=== PATIENT | female | born 1975 | race Caucasian/White ===

== ENCOUNTER 2016-12-12 03:43 | Emergency (ER) | payer OTHER ==
[~2016-12-12] VITALS: Ht 162.6 cm; Wt 69.4 kg
[~2016-12-12 03:43] MED LIST: ALBUTEROL SULF8.5 GM INH; AZITHROMYCIN250 MG ORAL; CIPROFLOXACIN500 M2 ORAL; CYCLOBENZAPRINE10 MG ORAL; ERYTHROMYCIN3.5 GM LEFT EYE; IBUPROFEN400 MG ORAL; IBUPROFEN600 MG ORAL; IBUPROFEN800 MG ORAL; KEFLEX500 MG ORAL; NITROFURANTOIN100 M2 ORAL; NKM; NORCO 5-325 TA1 EACH ORAL; PHENAZOPYRIDIN100 MG ORAL; PHENAZOPYRIDIN200 MG ORAL; PROMETHAZINE-C118 M1 ORAL; RANITIDINE HCL150 MG ORAL; TYLENOL EXTRA500 MG ORAL; XANAX0.5 MG ORAL; ZOFRAN ODT4 MG ORAL; ZOFRAN4 MG ORAL
[2016-12-12] MEDS ORDERED: IBUPROFEN600 MG ORAL (04:05)
[2016-12-12] MEDS ORDERED: HYDROCODON-ACE1 EA15 ORAL (04:20)
[2016-12-12] MEDS ORDERED: AMOXICILLIN500 MG ORAL (04:20)
--- NOTE | 2016-12-12 04:21 | Emergency Room Report ---
History of Present Illness General Chief Complaint: Earache Source: Patient Present Illness HPI Is a 41-year-old female with no significant past history. She presents with chief complaint of right ear pain. Onset for 2 days but worse tonight. Throbbing in nature and sharp in nature. 10 out of 10. Radiate to her head and also to her cheek. No fever or chills. No runny nose. Subjective fever. No cough or congestion. Allergies: Coded Allergies: No Known Allergies (Unverified , 05/29/13) Patient History Past Medical History: see triage record, old chart reviewed Past Surgical History: other Pertinent Family History: none Social History: Denies: smoking Now: No - early menopause : 0 Para: 0 Immunizations: other Reviewed Nursing Documentation: PMH: Agreed, PSxH: Agreed Nursing Documentation-PMH Hx Asthma: No Hx Cancer: Yes - ovarian cancer Hx Neurological Problems: No - PREMATURE MENOPAUSE Review of Systems Eye: Denies: blurred vision, eye pain ENT: Reports: ear pain, Denies: nose congestion, throat swelling Respiratory: Denies: cough, shortness of breath Cardiovascular: Denies: chest pain, palpitations Gastrointestinal: Denies: abdominal pain, diarrhea, nausea, vomiting Musculoskeletal: Denies: back pain, joint pain Skin: Denies: rash Neurological: Denies: headache, numbness Endocrine: Denies: increased thirst, increased urine Hematologic/Lymphatic: Denies: easy bruising All Other Systems: negative except mentioned in HPI Physical Exam Vital Signs Date Time Temp Pulse Resp B/P Pulse Ox O2 Delivery O2 Flow Rate FiO2 12/12/16 04:01 98.1 76 20 125/88 100 Room Air vitals normal Sp02 EP Interpretation: reviewed, normal General Appearance: well appearing, no apparent distress, alert Head: normocephalic, atraumatic Eyes: bilateral eye EOMI, bilateral eye PERRL ENT: hearing grossly normal, normal pharynx, other - No dental pain. Right TM is dull with fluid. Loss of light reflex. Neck: full range of motion, supple, no meningismus Respiratory: chest non-tender, lungs clear, normal breath sounds Cardiovascular #1: regular rate, rhythm, no murmur Gastrointestinal: normal bowel sounds, non tender, no mass, no organomegaly, no bruit, non-distended Musculoskeletal: back normal, gait/station normal, normal range of motion Psychiatric: mood/affect normal Skin: warm/dry Medical Decision Making Diagnostic Impression: Primary Impression: Right otitis media with effusion ER Course Patient presents with otitis media with effusion. No evidence of mastoiditis, perforation, meningitis or other serious bacterial infection. No dental abscess. Last Vital Signs Date Time Temp Pulse Resp B/P Pulse Ox O2 Delivery O2 Flow Rate FiO2 12/12/16 04:01 98.1 76 20 125/88 100 Room Air Status: improved Disposition: HOME, SELF-CARE Condition: Stable Scripts Hydrocodone/Acetaminophen 5-325* (HYDROCODONE/ACETAMINOPHEN 5-325*) 1 Each Tablet 1 TAB ORAL Q6H Y for For Pain, #15 TAB 0 Refills Prov: ELY WARREN M.D. 12/12/16 Amoxicillin* (AMOXIL*) 500 Mg Capsule 500 MG ORAL THREE TIMES A DAY, #21 CAP Prov: ELY WARREN M.D. 12/12/16 Patient Instructions: Otitis Media, Adult, [id number] Additional Instructions: Followup with your DrAbel in 7 days. Return if symptom worsen. ELY WARREN M.D. Dec 12, 2016 04:20
[2016-12-12 04:27] VITALS: BP 125/88
[2016-12-12] MEDS ORDERED: Norco 5mg/325mg tab ORAL ONE (04:30)
== END 2016-12-12 04:27 | disposition home or self-care (01) ==
LOC: EMR 04:25
DX: H66.91 Otitis media, unspecified, right ear (principal); Z85.43 Personal history of malignant neoplasm of ovary
CPT/HCPCS: 99284

== ENCOUNTER 2017-02-02 11:07 | Emergency (ER) | payer MEDICAID, OTHER ==
[~2017-02-02] VITALS: Ht 162.6 cm; Wt 70.8 kg
[~2017-02-02 11:07] MED LIST changes: +AMOXICILLIN500 MG ORAL; +HYDROCODON-ACE1 EA15 ORAL
[2017-02-02 11:42] VITALS: BP 104/55
[2017-02-02 12:12] LABS: APPEARANCE,URINE SLIGHTLY CLOUDY; KETONES,URINE NEGATIVE (NEGATIVE); LEUKOCYTE ESTERASE ,URINE 1+ (NEGATIVE); NITRITE,URINE NEGATIVE (NEGATIVE); PH,URINE 8 (4.5-8.0); PROTEIN,URINE NEGATIVE (NEGATIVE); UROBILINOGEN,URINE NORMAL MG/DL (0.0-1.0)
[2017-02-02] MEDS ORDERED: Metoclopramide 10mg/2ml Inj IVP ONE (12:15)
[2017-02-02 12:25] LABS: BACTERIA,URINE FEW /HPF; RBC,URINE 0-2 /HPF (0 - 2); SQUAMOUS EPITHELIAL CELL,UR MODERATE /LPF (NONE/OCC)
--- NOTE | 2017-02-02 12:30 | Emergency Room Report ---
History of Present Illness General Chief Complaint: Headache Source: Patient Present Illness HPI Patient is a 41-year-old female brought in by self after increased headache. Patient reported having gradual onset of headache associated with nausea and vomiting. She reported having pain to her head which did not radiate. She denied any visual changes. Patient reported having some bruising to her lower extremities. Patient denies past medical history Allergies: Coded Allergies: No Known Allergies (Unverified , 05/29/13) Patient History Past Medical History: see triage record Last Menstrual Period: 7 yrs ago Reviewed Nursing Documentation: PMH: Agreed, PSxH: Agreed Nursing Documentation-PMH Past Medical History: No Stated History Hx Asthma: No Hx Neurological Problems: No - PREMATURE MENOPAUSE Review of Systems All Other Systems: negative except mentioned in HPI Physical Exam Vital Signs Date Time Temp Pulse Resp B/P Pulse Ox O2 Delivery O2 Flow Rate FiO2 02/02/17 11:11 97.9 75 14 104/55 100 Room Air Sp02 EP Interpretation: reviewed, normal General Appearance: normal inspection, well appearing, no apparent distress, alert, GCS 15 Head: atraumatic ENT: normal ENT inspection, hearing grossly normal, normal voice Neck: normal inspection, full range of motion, supple, no bony tend Respiratory: normal inspection, lungs clear, normal breath sounds, no respiratory distress, no retraction, no wheezing Cardiovascular #1: regular rate, rhythm, no edema Gastrointestinal: normal inspection, normal bowel sounds, non tender, soft, no guarding, no hernia Genitourinary: no CVA tenderness Musculoskeletal: normal inspection, back normal, normal range of motion Neurologic: normal inspection, alert, oriented x3, responsive, bacteriologist soil III-XII nml as tested, speech normal Psychiatric: normal inspection, judgement/insight normal, mood/affect normal Skin: no rash, other - bruising to left thigh Medical Decision Making Diagnostic Impression: Primary Impression: Headache ER Course She presented for headache. Differential diagnoses included but was not limited to skull fracture, subarachnoid hemorrhage, meningitis, aneurysm, mass lesion, intracranial hemorrhage. Patient's benign exam and does not appear to require any further imaging or laboratory testing at this time. The patient was given medications for headache with improvement. Patient previous imaging. Patient shows no meningeal signs at this time. Patient was advised followup with her primary care physician for recheck in 2 days. She is advised to return if she began having increasing headache persistent vomiting neck stiffness or the concerns. This medical record is generated with [employer] lvn software. There may be some documentation discrepancies related to use of this software Labs Test 02/02/17 11:18 Urine Color Pale yellow Urine Appearance Slightly cloudy Urine pH 8 (4.5-8.0) Urine Specific [place] 1.010 (1.005-1.035) Urine Protein Negative (NEGATIVE) Urine Glucose (UA) Negative (NEGATIVE) Urine Ketones Negative (NEGATIVE) Urine Occult Blood Negative (NEGATIVE) Urine Nitrite Negative (NEGATIVE) Urine Bilirubin Negative (NEGATIVE) Urine Urobilinogen Normal MG/DL (0.0-1.0) Urine Leukocyte Esterase 1+ (NEGATIVE) Urine RBC 0-2 /HPF (0 - 2) Urine WBC 2-4 /HPF (0 - 2) Urine Squamous Epithelial Cells Moderate /LPF (NONE/OCC) Urine Bacteria Few /HPF (NONE) Urine HCG, Qualitative Negative Last Vital Signs Date Time Temp Pulse Resp B/P Pulse Ox O2 Delivery O2 Flow Rate FiO2 02/02/17 11:42 97.9 14 104/55 100 Room Air 02/02/17 11:11 75 Status: improved Disposition: HOME, SELF-CARE Condition: Stable Scripts Prednisone* (PREDNISONE*) 20 Mg Tablet 20 MG ORAL DAILY, #5 TAB Prov: Baron Krishnamurthy 02/02/17 Ibuprofen* (MOTRIN*) 600 Mg Tablet 600 MG ORAL Q8H Y for For Pain, #30 TAB 0 Refills Prov: Baron Krishnamurthy 02/02/17 Cephalexin* (KEFLEX*) 500 Mg Capsule 500 MG ORAL EVERY 6 HOURS, #28 CAP 0 Refills Prov: Baron Krishnamurthy 02/02/17 Referrals: [facility] (PCP) Baron Krishnamurthy Feb 02, 2017 12:30
[2017-02-02] MEDS ORDERED: KEFLEX500 MG ORAL (13:32)
[2017-02-02] MEDS ORDERED: IBUPROFEN600 MG ORAL (13:33)
[2017-02-02] MEDS ORDERED: PREDNISONE20 MG ORAL (13:38)
[2017-02-02 13:46] VITALS: BP 94/59
--- NOTE | 2017-02-03 07:48 | Diagnostic Imaging Report ---
Indications: Headache for 3 days, denies trauma Technique: Continuous helical CT imaging of the brain was performed with automatic exposure control on a Siemens sensation [address] scanner. Axial and coronal images were reconstructed at 5 mm slice thickness and interval. CTDI volume(s): 70 mGy Total DLP: 1336 mGy-cm Findings: Comparison: 05/29/13 Intracranial anatomy name unremarkable. No evidence of mass or hemorrhage, other attenuation abnormality, mass effect, midline shift, hydrocephalus or increased intracranial pressure. Bone window images are unremarkable. Visualized paranasal sinuses and mastoid air cells are clear. IMPRESSION: Negative noncontrast CT scan of the brain , unchanged. This correlates with [employer] preliminary report. The CT scanner at [facility] is accredited by the [employer] and the scans are performed using protocols designed to limit radiation exposure to as low as reasonably achievable to attain images of sufficient resolution adequate for diagnostic evaluation.
== END 2017-02-02 13:48 | disposition home or self-care (01) ==
LOC: EMR 11:20
DX: R51 Headache (principal); R11.2 Nausea with vomiting, unspecified; S70.02XA Contusion of left hip, initial encounter; X58.XXXA Exposure to other specified factors, initial encounter; Y92.9 Unspecified place or not applicable
CPT/HCPCS: 70450; 81003; 81025; 96374; 99284; J2765

== ENCOUNTER 2017-06-01 08:49 | Emergency (ER) | payer MEDICAID, OTHER ==
[~2017-06-01] VITALS: Ht 154.9 cm; Wt 68.0 kg
[~2017-06-01 08:49] MED LIST changes: +PREDNISONE20 MG ORAL
[2017-06-01 09:24] LABS: APPEARANCE,URINE VERY CLOUDY; KETONES,URINE NEGATIVE (NEGATIVE); LEUKOCYTE ESTERASE ,URINE 3+ (NEGATIVE); NITRITE,URINE POSITIVE (NEGATIVE); PH,URINE 5 (4.5-8.0); PROTEIN,URINE 3+ (NEGATIVE); UROBILINOGEN,URINE NORMAL MG/DL (0.0-1.0)
[2017-06-01 09:29] VITALS: BP 100/64
[2017-06-01] MEDS ORDERED: KEFLEX500 MG ORAL (09:42)
[2017-06-01] MEDS ORDERED: PHENAZOPYRIDIN100 MG ORAL (09:42)
--- NOTE | 2017-06-01 09:50 | Emergency Room Report ---
History of Present Illness General Chief Complaint: Female Urogenital Problems Source: Patient Present Illness HPI 41-year-old female presents ED complaining of burning urination x2 days. 8/10, burning, worse with urination. Denies any vaginal bleeding or discharge. Denies flank pain. Denies fevers or chills. Denies nausea or vomiting. No other aggravating relieving factors. Denies any other associated symptoms Allergies: Coded Allergies: No Known Allergies (Unverified , 05/29/13) Patient History Past Medical History: none Past Surgical History: none Pertinent Family History: none Social History: Denies: smoking, alcohol use, drug use Last Menstrual Period: 7 years ago Now: No Immunizations: UTD Reviewed Nursing Documentation: PMH: Agreed, PSxH: Agreed Nursing Documentation-PMH Past Medical History: No Stated History Hx Asthma: No Hx Neurological Problems: No - PREMATURE MENOPAUSE Review of Systems All Other Systems: negative except mentioned in HPI Physical Exam Vital Signs Date Time Temp Pulse Resp B/P (MAP) Pulse Ox O2 Delivery O2 Flow Rate FiO2 06/01/17 08:52 97.5 75 18 106/67 98 Room Air Sp02 EP Interpretation: reviewed, normal General Appearance: no apparent distress, alert, GCS 15, non-toxic Head: normocephalic Eyes: bilateral eye normal inspection, bilateral eye PERRL ENT: hearing grossly normal, normal pharynx, no angioedema, normal voice, TMs + canals normal Neck: normal inspection Respiratory: normal inspection Cardiovascular #1: normal inspection Gastrointestinal: normal inspection Genitourinary: no CVA tenderness Musculoskeletal: normal inspection Neurologic: alert, oriented x3, responsive, motor strength/tone normal, sensory intact, speech normal Psychiatric: normal inspection Skin: normal inspection Lymphatic: normal inspection Medical Decision Making Diagnostic Impression: Primary Impression: UTI (urinary tract infection) Qualified Codes: N39.0 - Urinary tract infection, site not specified ER Course Hospital Course 41-year-old female presents to ED complaining of dysuria x2 days. Differential diagnoses include: UTI, cystitis, pyelonephritis Clinical course Patient placed on stretcher. After initial history and physical I ordered UA, urine . UA + bacteria Diagnosis - UTI Stable and discharged home with prescriptions for Rx Keflex, Pyridium. Instructed to followup with PMD. Return to ED if symptoms recur or worsen Labs Test 06/01/17 09:00 Urine Color Yellow Urine Appearance Very cloudy Urine pH 5 (4.5-8.0) Urine Specific [place] 1.020 (1.005-1.035) Urine Protein 3+ (NEGATIVE) Urine Glucose (UA) Negative (NEGATIVE) Urine Ketones Negative (NEGATIVE) Urine Occult Blood 5+ (NEGATIVE) Urine Nitrite Positive (NEGATIVE) Urine Bilirubin Negative (NEGATIVE) Urine Urobilinogen Normal MG/DL (0.0-1.0) Urine Leukocyte Esterase 3+ (NEGATIVE) Urine HCG, Qualitative Negative Last Vital Signs Date Time Temp Pulse Resp B/P (MAP) Pulse Ox O2 Delivery O2 Flow Rate FiO2 06/01/17 09:29 98.1 75 14 100/64 99 Room Air Status: improved Disposition: HOME, SELF-CARE Condition: Stable Scripts Phenazopyridine Hcl* (PYRIDIUM*) 100 Mg Tablet 100 MG ORAL THREE TIMES A DAY for 3 Days, TAB Prov: BURTON LOWERY M.D. 06/01/17 Cephalexin* (KEFLEX*) 500 Mg Capsule 500 MG ORAL Q6H, #28 CAP 0 Refills Prov: BURTON LOWERY M.D. 06/01/17 Referrals: [facility] (PCP) Patient Instructions: Urinary Tract Infection BURTON LOWERY M.D. Jun 01, 2017 09:50
[2017-06-01 09:51] VITALS: BP 100/64
[2017-06-01 10:08] LABS: BACTERIA,URINE MANY /HPF; RBC,URINE TNTC /HPF (0 - 2); SQUAMOUS EPITHELIAL CELL,UR FEW /LPF (NONE/OCC); WBC,URINE TNTC /HPF (0 - 2)
== END 2017-06-01 09:52 | disposition home or self-care (01) ==
LOC: EMR 09:05
DX: N39.0 Urinary tract infection, site not specified (principal)
CPT/HCPCS: 81003; 81025; 87086; 87181; 99283

== ENCOUNTER 2017-06-27 13:49 | Emergency (ER) | payer MEDICAID ==
[~2017-06-27] VITALS: Ht 154.9 cm; Wt 70.3 kg
[2017-06-27 14:23] LABS: APPEARANCE,URINE SLIGHTLY CLOUDY; BILIRUBIN, URINE NEGATIVE (NEGATIVE); COLOR,URINE PALE YELLOW; GLUCOSE, URINE (UA) NEGATIVE (NEGATIVE); KETONES,URINE 3+ (NEGATIVE); LEUKOCYTE ESTERASE ,URINE 3+ (NEGATIVE); NITRITE,URINE POSITIVE (NEGATIVE); PH,URINE 6 (4.5-8.0); PROTEIN,URINE 1+ (NEGATIVE); UROBILINOGEN,URINE NORMAL MG/DL (0.0-1.0)
[2017-06-27 15:41] LABS: BASOPHILS % (AUTO) 0.5 % (0.0-2.0); EOSINOPHILS % (AUTO) 0.5 % (0.0-3.0); HEMATOCRIT 36.6 % (37.0-47.0); HEMOGLOBIN 12.4 G/DL (12.0-16.0); LYMPHOCYTES % (AUTO) 13.6 % (20.0-45.0); MEAN CORPUSCULAR VOLUME 88 FL (80-99); MONOCYTES % (AUTO) 9.5 % (1.0-10.0); NEUTROPHILS % (AUTO) 75.8 % (45.0-75.0); PLATELET COUNT 236 K/UL (150-450); RED BLOOD COUNT 4.16 M/UL (4.20-5.40); RED CELL DISTRIBUTION WIDTH 11.8 % (11.6-14.8); WHITE BLOOD COUNT 9.9 K/UL (4.8-10.8)
[2017-06-27 15:47] LABS: ANION GAP 10 mmol/L (5-15); BLOOD UREA NITROGEN 8 mg/dL (7-18); CALCIUM 9.1 MG/DL (8.5-10.1); CARBON DIOXIDE 26 MMOL/L (21-32); CHLORIDE 102 MMOL/L (98-107); CREATININE 0.9 MG/DL (0.55-1.30); POTASSIUM 4.3 MMOL/L (3.5-5.1); SODIUM 138 MMOL/L (136-145)
[2017-06-27 15:51] LABS: ALANINE AMINOTRANSFERASE 22 U/L (12-78); ALBUMIN 3.2 G/DL (3.4-5.0); ALBUMIN/GLOBULIN RATIO 0.7 (1.0-2.7); ALKALINE PHOSPHATASE 96 U/L (46-116); ASPARTATE AMINO TRANSFERASE 14 U/L (15-37); BILIRUBIN,TOTAL 0.2 MG/DL (0.2-1.0)
[2017-06-27] MEDS ORDERED: NITROFURANTOIN100 M2 ORAL (16:01)
[2017-06-27] MEDS ORDERED: ACETAMINOPHEN-1 EAC1 ORAL (16:01)
[2017-06-27 16:09] VITALS: BP 110/73
--- NOTE | 2017-06-27 19:22 | Emergency Room Report ---
History of Present Illness General Chief Complaint: Female Urogenital Problems Source: Patient Present Illness [facility] The patient is a 41-year-old female presenting for dysuria, increased urinary frequency, abdominal pain, and right-sided back pain. This has been ongoing for 2 days. The patient states that she obtains frequent UTIs and was seen in this emergency department approximately 3 weeks prior for the same complaint. She was given prescription for Keflex and states that this initially helped but symptoms returned after completing the course. Pain is a 9/10 constant ache. Does not radiate. She denies other symptoms including nausea, vomiting, fever, chills, hematuria, vaginal discharge Allergies: Coded Allergies: No Known Allergies (Unverified , 05/29/13) Patient History Past Medical History: see triage record Pertinent Family History: none Last Menstrual Period: 7 years ago Reviewed Nursing Documentation: PMH: Agreed, PSxH: Agreed Nursing Documentation-PMH Past Medical History: No Stated History Hx Asthma: No Hx Neurological Problems: No - PREMATURE MENOPAUSE Review of Systems All Other Systems: negative except mentioned in HPI Physical Exam Vital Signs Date Time Temp Pulse Resp B/P (MAP) Pulse Ox O2 Delivery O2 Flow Rate FiO2 06/27/17 13:53 98.8 89 14 99/65 95 Room Air Sp02 EP Interpretation: reviewed, normal General Appearance: no apparent distress, alert, GCS 15, non-toxic Head: normocephalic, atraumatic Eyes: bilateral eye normal inspection, bilateral eye PERRL ENT: hearing grossly normal, normal pharynx, no angioedema, normal voice Gastrointestinal: normal bowel sounds, no mass, non-distended, tenderness - suprapubic Rectal: deferred Genitourinary: CVA tenderness (R) Musculoskeletal: back normal, gait/station normal, normal range of motion, non- tender Neurologic: alert, oriented x3, responsive, motor strength/tone normal, sensory intact, speech normal Psychiatric: judgement/insight normal, memory normal, mood/affect normal, no suicidal/homicidal ideation Skin: normal color, no rash, warm/dry, well hydrated Medical Decision Making PA Attestation Dr. Wellington is my supervising physician. Patient management was discussed with my supervising physician Diagnostic Impression: Primary Impression: Recurrent UTI ER Course The patient is a 41-year-old female presenting for dysuria, increased urinary frequency, abdominal pain, and right-sided back pain. Differential diagnosis considered but not limited to: UTI, BV, yeast infection, pyelonephritis, PID, PE: Vitals WNL. NAD. Abdomen: Normal appearance. Non distended. No ecchymosis. Normal BS. TTP over suprapubic region only. No McBurney point tenderness. No guarding. R CVA tenderness No leukocytosis. BUN/Cr WNLA UA shows UTI The patient discharged home with a prescription for longer course of Macrobid and is given ER precautions. She was told she needs to followup with urology for further testing and evaluation. She agrees Laboratory Tests Test 06/27/17 13:59 06/27/17 15:00 Urine Color Pale yellow Urine Appearance Slightly cloudy Urine pH 6 (4.5-8.0) Urine Specific [place] 1.010 (1.005-1.035) Urine Protein 1+ (NEGATIVE) H Urine Glucose (UA) Negative (NEGATIVE) Urine Ketones 3+ (NEGATIVE) H Urine Occult Blood 4+ (NEGATIVE) H Urine Nitrite Positive (NEGATIVE) H Urine Bilirubin Negative (NEGATIVE) Urine Urobilinogen Normal MG/DL (0.0-1.0) Urine Leukocyte Esterase 3+ (NEGATIVE) H Urine RBC 2-4 /HPF (0 - 2) H Urine WBC 15-20 /HPF (0 - 2) H Urine Squamous Epithelial Cells Few /LPF (NONE/OCC) Urine Bacteria Moderate /HPF (NONE) H Urine HCG, Qualitative Negative White Blood Count 9.9 K/UL (4.8-10.8) Red Blood Count 4.16 M/UL (4.20-5.40) L Hemoglobin 12.4 G/DL (12.0-16.0) Hematocrit 36.6 % (37.0-47.0) L Mean Corpuscular Volume 88 FL (80-99) Mean Corpuscular Hemoglobin 29.9 PG (27.0-31.0) Mean Corpuscular Hemoglobin Concent 33.9 G/DL (32.0-36.0) Red Cell Distribution Width 11.8 % (11.6-14.8) Platelet Count 236 K/UL (150-450) Mean Platelet Volume 7.5 FL (6.5-10.1) Neutrophils (%) (Auto) 75.8 % (45.0-75.0) H Lymphocytes (%) (Auto) 13.6 % (20.0-45.0) L Monocytes (%) (Auto) 9.5 % (1.0-10.0) Eosinophils (%) (Auto) 0.5 % (0.0-3.0) Basophils (%) (Auto) 0.5 % (0.0-2.0) Prothrombin Time 10.9 SEC (9.30-11.50) Prothrombin Time INR 1.0 (0.9-1.1) PTT 30 SEC (23-33) Sodium Level 138 MMOL/L (136-145) Potassium Level 4.3 MMOL/L (3.5-5.1) Chloride Level 102 MMOL/L (98-107) Carbon Dioxide Level 26 MMOL/L (21-32) Anion Gap 10 mmol/L (5-15) Blood Urea Nitrogen 8 mg/dL (7-18) Creatinine 0.9 MG/DL (0.55-1.30) Estimate Glomerular Filtration Rate > 60 mL/min (>60) Glucose Level 101 MG/DL (74-106) Calcium Level 9.1 MG/DL (8.5-10.1) Total Bilirubin 0.2 MG/DL (0.2-1.0) Aspartate Amino Transferase (AST) 14 U/L (15-37) L Alanine Aminotransferase (ALT) 22 U/L (12-78) Alkaline Phosphatase 96 U/L (46-116) Total Protein 7.7 G/DL (6.4-8.2) Albumin 3.2 G/DL (3.4-5.0) L Globulin 4.5 g/dL Albumin/Globulin Ratio 0.7 (1.0-2.7) L Lipase 114 U/L (73-393) Lab Results Impression No leukocytosis. BUN/Cr WNLA UA shows UTI Last Vital Signs Date Time Temp Pulse Resp B/P (MAP) Pulse Ox O2 Delivery O2 Flow Rate FiO2 06/27/17 16:09 98.4 68 17 110/73 98 Room Air Status: improved Disposition: HOME, SELF-CARE Condition: Improved Scripts Acetaminophen With Codeine (T#3) (TYLENOL #3 TAB*) Y Tab 1 TAB ORAL Q6HR Y for For Pain, #10 TAB Prov: ARLEEN HER P.AAbel 06/27/17 Nitrofurantoin Monohyd/M-Cryst* (MACROBID 100 MG*) 100 Mg Capsule 100 MG ORAL EVERY 12 HOURS, #20 CAP Prov: ARLEEN HER 06/27/17 Patient Instructions: Urinary Tract Infection Additional Instructions: I discussed my findings with the patient. All questions and concerns have been answered. Treatment and medication compliance have been addressed. I advised the patient that they need to follow up with PMD in 3-5 days. Return to ED if symptoms worsen, new symptoms arise, or if needed for any reason. Patient verbalized understanding of discharge instructions. Please follow up with urology ARLEEN HER Jun 27, 2017 19:21
== END 2017-06-27 16:09 | disposition home or self-care (01) ==
LOC: EMR 14:10
DX: N39.0 Urinary tract infection, site not specified (principal)
CPT/HCPCS: 36415; 80053; 81003; 81025; 83690; 85025; 85610; 85730; 87086; 87181; 96361; 96374; 99284; J2405

== ENCOUNTER 2017-11-03 12:31 | Emergency (ER) | payer MEDICAID ==
[~2017-11-03] VITALS: Ht 160 cm; Wt 59.0 kg
[~2017-11-03 12:31] MED LIST changes: +ACETAMINOPHEN-1 EAC1 ORAL
[2017-11-03] MEDS ORDERED: NKM (12:40)
[2017-11-03] MEDS ORDERED: Acetaminophen 500mg (ES) tab ORAL ONE (12:45)
[2017-11-03 12:58] LABS: APPEARANCE,URINE CLEAR; BILIRUBIN, URINE NEGATIVE (NEGATIVE); COLOR,URINE PALE YELLOW; GLUCOSE, URINE (UA) NEGATIVE (NEGATIVE); KETONES,URINE NEGATIVE (NEGATIVE); LEUKOCYTE ESTERASE ,URINE 2+ (NEGATIVE); NITRITE,URINE NEGATIVE (NEGATIVE); PH,URINE 6 (4.5-8.0); PROTEIN,URINE NEGATIVE (NEGATIVE); UROBILINOGEN,URINE NORMAL MG/DL (0.0-1.0)
--- NOTE | 2017-11-03 12:59 | Emergency Room Report ---
History of Present Illness General Chief Complaint: Female Urogenital Problems Source: Patient Present Illness HPI 42-year-old female patient presents ER complaining of pain and burning with urination for the past few days. patient reports she saw a little bit of blood in the urine today. Denies vaginal discharge or vaginal rash. Denies foul- smelling odor. Patient reports history of recurrent UTIs, patient is been seen in this ER multiple times for UTI symptoms. Patient reports that she has not followed up with urologist due to recurrent UTIs. Patient also complains of subjective fever and nausea during this time. Patient reports no history of UTI. Patient reports she has not had a menstrual period for several years secondary to early-onset menopause. Patient reports recent sexual activity one month ago, states she uses protection. Patient denies back/flank pain. Patient reports she took Aleve at 9 this morning her pain symptoms. denies chest pain, shortness of breath, diarrhea. denies dizziness or fainting. Allergies: Coded Allergies: No Known Allergies (Unverified , 05/29/13) Patient History Past Medical History: see triage record Last Menstrual Period: menopause Reviewed Nursing Documentation: PMH: Agreed; PSxH: Agreed Nursing Documentation-PMH Past Medical History: No Stated History Hx Asthma: No Hx Neurological Problems: No - PREMATURE MENOPAUSE Review of Systems All Other Systems: negative except mentioned in HPI Physical Exam Vital Signs Date Time Temp Pulse Resp B/P (MAP) Pulse Ox O2 Delivery O2 Flow Rate FiO2 11/03/17 12:36 98.8 102 18 107/71 97 Room Air 98.8 Sp02 EP Interpretation: reviewed, normal General Appearance: well appearing, no apparent distress, alert, GCS 15, non- toxic Head: normocephalic, atraumatic Eyes: bilateral eye normal inspection, bilateral eye PERRL ENT: hearing grossly normal, normal pharynx, no angioedema, normal voice, uvula midline, moist mucus membranes Neck: full range of motion Respiratory: lungs clear, normal breath sounds, no rhonchi, no respiratory distress, no accessory muscle use, no wheezing, speaking full sentences Cardiovascular #1: regular rate, rhythm, no edema Gastrointestinal: non tender, soft, no mass, non-distended, no guarding, no rebound Genitourinary: no CVA tenderness Musculoskeletal: back normal, digits/nails normal, gait/station normal, normal range of motion, non-tender Neurologic: alert, oriented x3, responsive, motor strength/tone normal, sensory intact Psychiatric: mood/affect normal Skin: no rash Medical Decision Making PA Attestation Dr. Cui is my supervising Physician whom patient management has been discussed with. Diagnostic Impression: Primary Impression: UTI (urinary tract infection) ER Course Pt presents to ED c/o urinary symptoms. DDX considered but are not limited to cystitis, pyelonephritis, STI, vaginitis. VITAL SIGNS are WNL, patient is afebrile. Ordered UA. ER COURSE PE benign, no TTP of abdomen, no CVA tenderness bilaterally. UA results show leukocyte esterase 2+, elevated WBCs, few epithelial cells, indicate likely UTI, will treat with abx. Microscopic hematuria may be related to UTI, may be related to hx of recurrent UTIs, patient needs to followup with PCP for referral to for further workup. Need f/u with OBGYN. If concern for STI, followup with STI clinic for testing and treatment. Denies STI concern. follow-up with urology due to recurrent UTIs. Practice good hygiene habits. Drink plenty of fluids. Return to ER for new or worsening of symptoms. Patient is resting comfortably in chair, nontoxic appearing, in no acute distress. Patient states they feel better and is ready to go home. DISCHARGE -Rx provided for Tylenol -Rx provided for Keflex Patient is stable for discharge. Patient resting comfortably, in no acute distress, nontoxic appearing, talking without difficulty. Will provide with patient care instructions and any necessary prescriptions. Patient understands and agrees to treatment plan. Patient encouraged to drink plenty of fluids. Patient to take medication as instructed. Care plan and follow-up instructions provided. Patient questions asked and answered. Reports understanding and agreement to treatment plan. Patient instructed to follow-up with primary care provider in 3 - 5 days. ER precautions given. Patient instructed to return to ER immediately for any new or worsening of symptoms. Including but not limited to fever, abdominal pain , intractable vomiting. - Please note that this Emergency Department Report was dictated using [facility] [employer] technology software, occasionally this can lead to erroneous entry secondary to interpretation by the dictation equipment. Labs Test 11/03/17 12:40 Urine Color Pale yellow Urine Appearance Clear Urine pH 6 (4.5-8.0) Urine Specific Nelson 1.015 (1.005-1.035) Urine Protein Negative (NEGATIVE) Urine Glucose (UA) Negative (NEGATIVE) Urine Ketones Negative (NEGATIVE) Urine Occult Blood 4+ (NEGATIVE) Urine Nitrite Negative (NEGATIVE) Urine Bilirubin Negative (NEGATIVE) Urine Urobilinogen Normal MG/DL (0.0-1.0) Urine Leukocyte Esterase 2+ (NEGATIVE) Urine RBC 5-10 /HPF (0 - 2) Urine WBC 15-20 /HPF (0 - 2) Urine Squamous Epithelial Cells Few /LPF (NONE/OCC) Urine Bacteria Few /HPF (NONE) Last Vital Signs Date Time Temp Pulse Resp B/P (MAP) Pulse Ox O2 Delivery O2 Flow Rate FiO2 11/03/17 12:36 98.8 102 18 107/71 97 Room Air 98.8 Disposition: HOME, SELF-CARE Condition: Stable Scripts Acetaminophen* (TYLENOL EXTRA STRENGTH*) 500 Mg Tablet 500 MG ORAL Q8H PRN for Prn Headache/Temp > 101, #30 TAB 0 Refills Prov: Andre Valentin 11/03/17 Cephalexin* (KEFLEX*) 500 Mg Capsule 500 MG ORAL EVERY 12 HOURS, #14 CAP 0 Refills Prov: Andre Valentin 11/03/17 Patient Instructions: Urinary Tract Infection Additional Instructions: Followup with primary care provider for further diagnosis and treatment. Request referral to urology and provider relations specialist as needed. Contact insurance to request primary care provider. If concern for STI, follow up with STI clinic. Drink plenty of fluids. Take medications as directed. Patient questions asked and answered. ER precautions given, patient instructed to return to ER immediately for any new or worsening of symptoms. Andre Valentin November 03, 2017 12:59
[2017-11-03] MEDS ORDERED: TYLENOL EXTRA500 MG ORAL (13:25)
[2017-11-03] MEDS ORDERED: CEPHALEXIN500 MG ORAL (13:25)
[2017-11-03 13:45] VITALS: BP 111/75
== END 2017-11-03 13:52 | disposition home or self-care (01) ==
LOC: EMR 13:18
DX: N39.0 Urinary tract infection, site not specified (principal)
CPT/HCPCS: 81003; 87086; 87181; 99284

== ENCOUNTER 2017-11-29 12:02 | Emergency (ER) | payer MEDICAID ==
[~2017-11-29] VITALS: Ht 162.6 cm; Wt 69.9 kg
[~2017-11-29 12:02] MED LIST changes: +CEPHALEXIN500 MG ORAL
[2017-11-29 12:37] VITALS: BP 107/78
--- NOTE | 2017-11-29 12:40 | Emergency Room Report ---
History of Present Illness General Chief Complaint: Upper Respiratory Illness Source: Patient Present Illness HPI 42-year-old female presents emergency department complaining of persistent cough , nasal congestion, progression of posterior-lateral rib cage pain that is 10 out of 10 in severity upon coughing x 3 days. Patient denies anterior chest pain. Denies sputum production. Reports fevers denies chills patient states she took Motrin prior to arrival. Denies history of asthma, COPD or smoking. She reports history of bronchitis. Denies CP, Palpitations, LOC, AMS, dizziness , Changes in Vision, Sensation, paresthesias, or a sudden severe headach Allergies: Coded Allergies: No Known Allergies (Unverified , 05/29/13) Patient History Past Medical History: see triage record Past Surgical History: none Pertinent Family History: none Now: No Reviewed Nursing Documentation: PMH: Agreed; PSxH: Agreed Nursing Documentation-PMH Past Medical History: No Stated History Hx Asthma: No Hx Neurological Problems: No - PREMATURE MENOPAUSE Review of Systems All Other Systems: negative except mentioned in HPI Physical Exam Vital Signs Date Time Temp Pulse Resp B/P (MAP) Pulse Ox O2 Delivery O2 Flow Rate FiO2 11/29/17 12:24 98.3 88 20 107/78 97 Room Air 98.2 Sp02 EP Interpretation: reviewed, normal General Appearance: no apparent distress, alert, GCS 15, non-toxic Head: normocephalic, atraumatic Eyes: bilateral eye normal inspection, bilateral eye PERRL ENT: hearing grossly normal, normal voice Neck: full range of motion Respiratory: chest non-tender, lungs clear, normal breath sounds, no wheezing, speaking full sentences Cardiovascular #1: regular rate, rhythm Musculoskeletal: back normal, gait/station normal, normal range of motion Neurologic: alert, oriented x3, responsive, motor strength/tone normal, sensory intact, normal gait, speech normal, grossly normal Psychiatric: judgement/insight normal Skin: normal color, no rash, warm/dry, well hydrated Lymphatic: no adenopathy Medical Decision Making PA Attestation Dr. Osorio is my supervising Physician whom patient management has been discussed with. Diagnostic Impression: Primary Impression: Bronchitis ER Course 42-year-old female presents emergency department complaining of persistent cough , nasal congestion, progression of posterior-lateral rib cage pain that is 10 out of 10 in severity upon coughing x 3 days. Patient denies anterior chest pain. Denies sputum production. Reports fevers denies chills patient states she took Motrin prior to arrival. Denies history of asthma, COPD or smoking. She reports history of bronchitis. Denies CP, Palpitations, LOC, AMS, dizziness , Changes in Vision, Sensation, paresthesias, or a sudden severe headache. Ddx considered but are not limited to URI, pneumonia, PE, strep pharyngitis, meningitis. Vital signs: Pt.is afebrile VS are WNL H&PE are most consistent with bronchitis ORDERS: none required at this time, the diagnosis is clinical ED INTERVENTIONS: None required at this time. DISCHARGE: At this time pt. is stable for d/c to home. Will provide printed patient care instructions, and any necessary prescriptions. Care plan and follow up instructions have been discussed with the patient prior to discharge. Last Vital Signs Date Time Temp Pulse Resp B/P (MAP) Pulse Ox O2 Delivery O2 Flow Rate FiO2 11/29/17 12:24 98.3 88 20 107/78 97 Room Air 98.2 Disposition: HOME, SELF-CARE Condition: Stable Scripts Albuterol Sulfate* (ALBUTEROL SULFATE MDI*) 8.5 Gm Hfa.aer.ad 2 PUFF INH Q6H, #1 INH 0 Refills Prov: Juany Faria 11/29/17 Ibuprofen* (MOTRIN*) 600 Mg Tablet 600 MG ORAL THREE TIMES A DAY, #20 TAB 0 Refills Prov: Juany Faria 11/29/17 Loratadine/Pseudoephedrine (CLARITIN-D 12 HOUR TABLET) 1 Each Tab.er.12h 1 TAB ORAL EVERY 12 HOURS for 7 Days, #14 TAB Prov: Juany Faria 11/29/17 Codeine/Promethazine Hcl* (PROMETHAZINE-CODEINE SYRUP*) 118 Ml Syrup 5 ML ORAL Q6H PRN for For Cough, #120 ML 0 Refills Prov: Juany Faria 11/29/17 Referrals: [facility] (PCP) Patient Instructions: Acute Bronchitis, [id number] Additional Instructions: Take medications as directed. Follow up with a Primary Care Provider in 3-5 days, even if your symptoms have resolved. --Please review list of primary care clinics, if you do not already have a primary care provider Return sooner to ED if new symptoms occur, or current symptoms become worse. Do not drink alcohol, drive, or operate heavy machinery while taking Bronchitis as this may cause drowsiness. - Please note that this Emergency Department Report was dictated using [employer] fry[employer] technology software, occasionally this can lead to erroneous entry secondary to interpretation by the dictation equipment. Juany Faria Nov 29, 2017 12:40
[2017-11-29] MEDS ORDERED: ALBUTEROL SULF8.5 GM INH (12:46)
[2017-11-29] MEDS ORDERED: CLARITIN-D 121 EAC1 ORAL (12:46)
[2017-11-29] MEDS ORDERED: PROMETHAZINE-C118 M1 ORAL (12:46)
[2017-11-29] MEDS ORDERED: IBUPROFEN600 MG ORAL (12:46)
[2017-11-29 12:54] VITALS: BP 107/78
== END 2017-11-29 12:55 | disposition home or self-care (01) ==
LOC: EMR 12:35
DX: J40 Bronchitis, not specified as acute or chronic (principal)
CPT/HCPCS: 99284

== ENCOUNTER 2018-04-23 11:12 | Emergency (ER) | payer MEDICAID, OTHER ==
[~2018-04-23] VITALS: Ht 162.6 cm; Wt 67.6 kg
[~2018-04-23 11:12] MED LIST changes: +CLARITIN-D 121 EAC1 ORAL
[2018-04-23 11:45] VITALS: BP 112/70
[2018-04-23] MEDS ORDERED: ROBITUSSIN NIG237 ML PO (11:48)
[2018-04-23] MEDS ORDERED: ZITHROMAX250 MG ORAL (11:48)
[2018-04-23 11:53] VITALS: BP 112/70
--- NOTE | 2018-04-24 07:03 | Emergency Room Report ---
History of Present Illness General Chief Complaint: Flu Like Symptoms Source: Patient Present Illness HPI Patient present with complaints of cough and congestion reports increased phlegm production Denies any chest pain Denies any vomiting or diarrhea Patient reports low-grade fevers at home Denies any recent travel Denies any neck pain or photophobia As his symptoms persisted patient was concerning came to the ER Allergies: Coded Allergies: No Known Allergies (Unverified , 05/29/13) Patient History Past Medical History: see triage record Pertinent Family History: none Last Menstrual Period: MENOPAUSE Reviewed Nursing Documentation: PMH: Agreed; PSxH: Agreed Nursing Documentation-PMH Past Medical History: No Stated History Hx Asthma: No Hx Neurological Problems: No - PREMATURE MENOPAUSE Review of Systems All Other Systems: negative except mentioned in HPI Physical Exam Vital Signs Date Time Temp Pulse Resp B/P (MAP) Pulse Ox O2 Delivery O2 Flow Rate FiO2 04/23/18 11:36 98.2 78 14 112/70 99 Room Air Sp02 EP Interpretation: reviewed, normal General Appearance: well appearing, no apparent distress Head: normocephalic, atraumatic Eyes: bilateral eye PERRL, bilateral eye EOMI ENT: hearing grossly normal, normal pharynx, TMs + canals normal, uvula midline Neck: full range of motion, supple, no meningismus, no bony tend Respiratory: no respiratory distress, no retraction, no accessory muscle use, crackles - Right lower lobe Cardiovascular #1: normal peripheral pulses, regular rate, rhythm, no edema, no gallop, no JVD, no murmur Gastrointestinal: normal bowel sounds, non tender, soft, no mass, no organomegaly, non-distended, no guarding, no hernia, no pulsatile mass, no rebound Genitourinary: no CVA tenderness Musculoskeletal: normal inspection Neurologic: oriented x3, responsive, 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, motor strength/ tone normal, sensory intact Psychiatric: mood/affect normal Skin: normal color, no rash, warm/dry, palpation normal Lymphatic: normal inspection, no adenopathy Medical Decision Making Diagnostic Impression: Primary Impression: community acquired pna ER Course Patient has clinical signs and history of community acquired pneumonia Given the green phlegm production and the duration Patient is treated appropriately and stable for initial conservative outpatient trial Last Vital Signs Date Time Temp Pulse Resp B/P (MAP) Pulse Ox O2 Delivery O2 Flow Rate FiO2 04/23/18 11:53 98.2 73 14 112/70 99 Room Air Status: improved Disposition: HOME, SELF-CARE Condition: Stable Scripts Dextromethorphan Hb/Doxylamine (ROBITUSSIN NIGHTTIME COUGH DM) 237 Ml Liquid 10 ML PO QHS for 7 Days, ML Prov: Naveen Bernard DO 04/23/18 Azithromycin* (ZITHROMAX*) 250 Mg Tablet 250 MG ORAL DAILY, #6 TAB 0 Refills Take two tables once daily for 1 day, then one tablet once daily for 4 days. Prov: Naveen Bernard DO 04/23/18 Referrals: [facility] (PCP) Patient Instructions: Community-Acquired Pneumonia, Adult, [id number] Additional Instructions: Patient is provided with the discharge instructions notified to follow up with primary doctor in the next 2-3 days otherwise return to the er with any worsening symptoms. Please note that this report is being documented using [employer] technology. This can lead to erroneous entry secondary to incorrect interpretation by the dictating instrument. Naveen Bernard DO Apr 24, 2018 07:03
== END 2018-04-23 11:54 | disposition home or self-care (01) ==
LOC: EMR 11:45
DX: J18.9 Pneumonia, unspecified organism (principal)
CPT/HCPCS: 99283

== ENCOUNTER 2018-11-02 10:26 | Emergency (ER) | payer OTHER ==
[~2018-11-02] VITALS: Ht 152.4 cm; Wt 67.1 kg
[~2018-11-02 10:26] MED LIST changes: +ROBITUSSIN NIG237 ML PO; +ZITHROMAX250 MG ORAL
[2018-11-02 10:34] VITALS: BP 110/64
--- NOTE | 2018-11-02 10:37 | NUR ---
ED Nurse Note:pt. came with left knee pain for 3 week no injury reported, VSS, pt. ambulatory with steady gait
--- NOTE | 2018-11-02 10:41 | Emergency Room Report ---
History of Present Illness General Chief Complaint: Pain Source: Patient Present Illness HPI Patient presents with reports of pain to the left knee Ongoing for the past several weeks patient reports that walking or putting weight on that side makes the pain worse denies any obvious trauma Denies any ankle pain denies any pelvic pain Denies any swelling or erythema Denies any fevers chills Allergies: Coded Allergies: No Known Allergies (Unverified , 05/29/13) Patient History Past Medical History: see triage record Pertinent Family History: none Now: No Reviewed Nursing Documentation: PMH: Agreed; PSxH: Agreed Nursing Documentation-PMH Hx Asthma: No Hx Neurological Problems: No - PREMATURE MENOPAUSE Review of Systems All Other Systems: negative except mentioned in HPI Physical Exam Vital Signs Date Time Temp Pulse Resp B/P (MAP) Pulse Ox O2 Delivery O2 Flow Rate FiO2 11/02/18 10:28 98.1 75 20 110/64 (79) 100 Room Air Sp02 EP Interpretation: reviewed, normal General Appearance: well appearing, no apparent distress Head: normocephalic, atraumatic Eyes: bilateral eye PERRL, bilateral eye EOMI ENT: hearing grossly normal, normal pharynx Neck: supple Respiratory: lungs clear, no retraction Musculoskeletal: normal inspection - No obvious clinical effusion, patella is appropriately mobile, negative anterior and posterior draw test Neurologic: alert, oriented x3 Psychiatric: mood/affect normal Skin: normal inspection, normal color Lymphatic: no adenopathy Medical Decision Making Diagnostic Impression: Primary Impression: Knee pain ER Course Given the patient's history and presentation multiple differentials considered, including but not limited to septic joint, occult fracture, ligamental/disc pathology Given the patient's initial presentation x-ray imaging is obtained No obvious acute pathology is seen Patient does not appear septic or toxic the joint does not appear inflamed Patient will likely benefit from outpatient MRI for further evaluation And at this time is provided referral for close follow-up Other X-Ray Diagnostic Results Other X-Ray Diagnostic Results : X-Ray ordered: Left knee # of Views/Limited Vs Complete: 3 View Indication: Pain EP Interpretation: Yes Interpretation: no dislocation, no soft tissue swelling, no fractures Impression: No acute disease Electronically Signed by: Naveen Bernard DO Last Vital Signs Date Time Temp Pulse Resp B/P (MAP) Pulse Ox O2 Delivery O2 Flow Rate FiO2 11/02/18 10:34 98.1 75 20 110/64 100 Room Air Status: unchanged Disposition: HOME, SELF-CARE Condition: Stable Additional Instructions: Patient is provided with the discharge instructions notified to follow up with primary doctor in the next 2-3 days otherwise return to the er with any worsening symptoms. Please note that this report is being documented using [employer] technology. This can lead to erroneous entry secondary to incorrect interpretation by the dictating instrument. Naveen Bernard DO November 02, 2018 10:41
[2018-11-02 11:53] VITALS: BP 110/64
--- NOTE | 2018-11-02 11:53 | NUR ---
ER DISCHARGE NOTE: Patient is cleared to be discharged per ERMD, pt is aox4, on room air, with stable vital signs. pt was given dc and prescription instructions, pt was able to verbalize understanding, pt id band removed. pt is able to ambulate with steady gait. pt took all belongings.
--- NOTE | 2018-11-02 11:59 | Diagnostic Imaging Report ---
INDICATION: Knee Pain COMPARISON: None 3 views of the left knee were obtained. FINDINGS: No acute fracture, malalignment, or joint effusion are identified. Joint space is relatively well-maintained. Impression: Negative for acute injury
== END 2018-11-02 12:00 | disposition home or self-care (01) ==
LOC: EMR 11:00
DX: M25.562 Pain in left knee (principal)
CPT/HCPCS: 99283

== ENCOUNTER 2019-04-26 20:22 | Emergency (ER) | payer OTHER ==
[~2019-04-26] VITALS: Ht 154.9 cm; Wt 68.0 kg
[2019-04-26] MEDS ORDERED: NKM (20:31)
--- NOTE | 2019-04-26 21:00 | NUR ---
ED Nurse Note: providing urine sample.
[2019-04-26 21:05] VITALS: BP 100/69
--- NOTE | 2019-04-26 21:10 | NUR ---
ED Nurse Note: pt presents to ED c/o dyuria that started last PM. pt denies any hematuria at this time. 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
[2019-04-26] MEDS ORDERED: Lidocaine 1% MPF 10mg/ml 5ml INJ ONE (21:15)
[2019-04-26 21:16] LABS: APPEARANCE,URINE CLOUDY; BILIRUBIN, URINE NEGATIVE (NEGATIVE); GLUCOSE, URINE (UA) NEGATIVE (NEGATIVE); KETONES,URINE NEGATIVE (NEGATIVE); LEUKOCYTE ESTERASE ,URINE 3+ (NEGATIVE); NITRITE,URINE POSITIVE (NEGATIVE); PH,URINE 6.5 (4.5-8.0); PROTEIN,URINE 2+ (NEGATIVE); UROBILINOGEN,URINE 1 MG/DL (0.0-1.0)
[2019-04-26 21:19] LABS: COLOR,URINE YELLOW
[2019-04-26] MEDS ORDERED: IBUPROFEN600 MG ORAL (21:20)
[2019-04-26] MEDS ORDERED: MACROBID100 MG ORAL (21:20)
--- NOTE | 2019-04-26 21:20 | Emergency Room Report ---
History of Present Illness General Chief Complaint: Female Urogenital Problems Source: Patient Present Illness HPI Is a 43-year-old female with history of recurrent urinary tract infection. She presents with chief complaint of body pain and fever for last couple days. Also with dysuria and frequency. This is also the same amount of time. No upper back pain. Has some nausea and vomiting. Tolerating p.o. Denies any trauma. No cough or congestion. No sore throat. Allergies: Coded Allergies: No Known Allergies (Unverified , 05/29/13) Patient History Past Medical History: see triage record, old chart reviewed Past Surgical History: none Pertinent Family History: none Social History: Denies: smoking Last Menstrual Period: 7 years ago, menopause. Now: No Immunizations: other Reviewed Nursing Documentation: PMH: Agreed; PSxH: Agreed Nursing Documentation-PMH Hx Asthma: No Hx Neurological Problems: No - PREMATURE MENOPAUSE Review of Systems Constitutional: Reports: fever Eye: Denies: eye pain, blurred vision ENT: Denies: ear pain, nose congestion, throat swelling Respiratory: Denies: cough, shortness of breath Cardiovascular: Denies: chest pain, palpitations Gastrointestinal: Denies: abdominal pain, diarrhea, nausea, vomiting Genitourinary: Reports: dysuria, frequency, urgency Musculoskeletal: Denies: back pain, joint pain Skin: Denies: rash Neurological: Denies: headache, numbness Endocrine: Denies: increased thirst, increased urine Hematologic/Lymphatic: Denies: easy bruising All Other Systems: negative except mentioned in HPI Physical Exam Vital Signs Date Time Temp Pulse Resp B/P (MAP) Pulse Ox O2 Delivery O2 Flow Rate FiO2 04/26/19 20:24 98.6 88 17 100/69 (79) 96 Room Air Vitals normal Sp02 EP Interpretation: reviewed, normal General Appearance: well appearing, no apparent distress, alert Head: normocephalic, atraumatic Eyes: bilateral eye PERRL, bilateral eye EOMI ENT: hearing grossly normal, normal pharynx Neck: full range of motion, supple, no meningismus Respiratory: chest non-tender, lungs clear, normal breath sounds Cardiovascular #1: regular rate, rhythm, no murmur Gastrointestinal: normal bowel sounds, non tender, no mass, no organomegaly, no bruit, non-distended Musculoskeletal: back normal, gait/station normal, normal range of motion Psychiatric: mood/affect normal Medical Decision Making Diagnostic Impression: Primary Impression: UTI (urinary tract infection) Qualified Codes: N30.00 - Acute cystitis without hematuria ER Course This patient presents with symptoms consistent with UTI. No evidence of pyelonephritis or sepsis. She is tolerating p.o. Dose of Rocephin given here. She grew out E. coli in the past and is pansensitive. Will discharge home. Last Vital Signs Date Time Temp Pulse Resp B/P (MAP) Pulse Ox O2 Delivery O2 Flow Rate FiO2 04/26/19 20:24 98.6 88 17 100/69 (79) 96 Room Air Status: improved Disposition: HOME, SELF-CARE Condition: Stable Scripts Nitrofurantoin Monohyd/M-Cryst (Nitrofurantoin Turner-Mcr 100 mg) 100 Mg Capsule 100 MG ORAL Q12H, #14 CAP Prov: Dallas Cardenas MD 04/26/19 Ibuprofen* (MOTRIN*) 600 Mg Tablet 600 MG ORAL THREE TIMES A DAY, #30 TAB 0 Refills Prov: Dallas Cardenas MD 04/26/19 Patient Instructions: Urinary Tract Infection Additional Instructions: Increase fluids. Follow-up with your doctor in 2 to 3 days for recheck. Return if worse. Dallas Cardenas MD Apr 26, 2019 21:20
[2019-04-26 21:37] VITALS: BP 105/69
--- NOTE | 2019-04-26 21:37 | NUR ---
ER DISCHARGE NOTE: Patient is cleared to be discharged per ERMD, pt is aox4, on room air, with stable vital signs. pt was given dc and prescription instructions, pt was able to verbalize understanding, pt id band removed without complications. pt is able to ambulate with steady gait. pt took all belongings.
== END 2019-04-26 21:37 | disposition home or self-care (01) ==
LOC: EMR 21:05
DX: N30.00 Acute cystitis without hematuria (principal); R11.2 Nausea with vomiting, unspecified
CPT/HCPCS: 81003; 87086; 96372; 96374; 99284; J0696

== ENCOUNTER 2019-11-25 22:11 | Emergency (ER) | payer OTHER ==
[~2019-11-25] VITALS: Ht 165.1 cm; Wt 70.3 kg
[~2019-11-25 22:11] MED LIST changes: +MACROBID100 MG ORAL
[2019-11-25 22:29] VITALS: BP 101/65
--- NOTE | 2019-11-25 22:35 | Emergency Room Report ---
History of Present Illness General Chief Complaint: Pain Source: Patient Present Illness HPI This a 44-year-old female with no past medical history. She presents with 2 complaints. First complaint is back pain and hip pain. 3 days ago she was walking down the steps and missed a step. She slipped and fell. Since then she complained of lower back pain with radiating to the left hip. Worse with movement. Better with rest. Pain is 8 out of 10. No other trauma. 2 days ago she has some suprapubic pain and subjective fever. Since then she has some dysuria and frequency. No hematuria. She has a history of urinary tract infection and been here several times for it. No back pain. No nausea no vomiting. Better with Tylenol. Allergies: Coded Allergies: No Known Allergies (Unverified , 05/29/13) COVID-19 Screening Contact w/high risk pt: No Recent Travel to affected area: No Experienced COVID-19 symptoms?: No COVID-19 Testing performed CALL OR CONTACT CENTRE OPERATOR: No Patient History Past Medical History: see triage record, old chart reviewed Past Surgical History: none Pertinent Family History: none Social History: Denies: smoking Last Menstrual Period: menapuse Now: No Immunizations: other Reviewed Nursing Documentation: PMH: Agreed; PSxH: Agreed Nursing Documentation-PMH Past Medical History: No Stated History Hx Asthma: No Hx Neurological Problems: No - PREMATURE MENOPAUSE Review of Systems Eye: Denies: eye pain, blurred vision ENT: Denies: ear pain, nose congestion, throat swelling Respiratory: Denies: cough, shortness of breath Cardiovascular: Denies: chest pain, palpitations Gastrointestinal: Denies: abdominal pain, diarrhea, nausea, vomiting Genitourinary: Reports: dysuria, frequency Musculoskeletal: Reports: back pain; Denies: joint pain Skin: Denies: rash Neurological: Denies: headache, numbness Endocrine: Denies: increased thirst, increased urine Hematologic/Lymphatic: Denies: easy bruising All Other Systems: negative except mentioned in HPI Physical Exam Vital Signs Date Time Temp Pulse Resp B/P (MAP) Pulse Ox O2 Delivery O2 Flow Rate FiO2 11/25/19 22:20 99.3 98 16 101/65 (77) 99 Room Air Vitals normal Sp02 EP Interpretation: reviewed, normal General Appearance: well appearing, no apparent distress, alert Head: normocephalic, atraumatic Eyes: bilateral eye PERRL, bilateral eye EOMI ENT: hearing grossly normal, normal pharynx Neck: full range of motion, supple, no meningismus Respiratory: chest non-tender, lungs clear, normal breath sounds Cardiovascular #1: regular rate, rhythm, no murmur Gastrointestinal: normal bowel sounds, non tender, no mass, no organomegaly, no bruit, non-distended Musculoskeletal: back normal - Lower lumbar, normal range of motion, gait/ station normal Psychiatric: mood/affect normal Medical Decision Making Diagnostic Impression: Primary Impression: Lumbar strain Qualified Codes: S39.012A - Strain of muscle, fascia and tendon of lower back , initial encounter Additional Impression: UTI (urinary tract infection) Qualified Codes: N30.00 - Acute cystitis without hematuria ER Course Patient presents with soft tissue injury from a fall. No fracture in this location. She does have recurrent UTI. Grew out E. coli in the past. Sensitive to Levaquin. Dose of Levaquin given here. Will discharge home. Other X-Ray Diagnostic Results Other X-Ray Diagnostic Results : X-Ray ordered: LumBar spine x-rays # of Views/Limited Vs Complete: Complete Indication: Pain EP Interpretation: Yes Interpretation: no dislocation, no soft tissue swelling, no fractures Impression: No acute disease Electronically Signed by: Dallas Cardenas MD Last Vital Signs Date Time Temp Pulse Resp B/P (MAP) Pulse Ox O2 Delivery O2 Flow Rate FiO2 11/25/19 22:29 99.3 78 16 101/65 99 Room Air Status: improved Disposition: HOME, SELF-CARE Condition: Stable Scripts Ibuprofen* (MOTRIN*) 600 Mg Tablet 600 MG ORAL Q6H PRN for For Pain, #30 TAB 0 Refills Prov: Dallas Cardenas MD 11/25/19 Levofloxacin* (LEVAQUIN*) 500 Mg Tablet 500 MG ORAL DAILY, #6 TAB Prov: Dallas Cardenas MD 11/25/19 Referrals: NON PHYSICIAN (PCP) Additional Instructions: Follow up with your doctor in 7 days. Return if symptoms worsen. Dallas Cardenas MD Nov 25, 2019 22:35
[2019-11-25] MEDS ORDERED: Levofloxacin 500mg tab ORAL ONE (22:45)
[2019-11-25 23:45] VITALS: BP 113/74
[2019-11-25] MEDS ORDERED: IBUPROFEN600 M1 ORAL (23:50)
[2019-11-25] MEDS ORDERED: LEVAQUIN500 MG ORAL (23:50)
[2019-11-25 23:53] VITALS: BP 113/74
--- NOTE | 2019-11-26 06:37 | Diagnostic Imaging Report ---
EXAM: XR Lumbosacral Spine, 4 or 5 Views CLINICAL HISTORY: TRAUMA TECHNIQUE: Frontal, lateral and oblique views of the lumbar spine. COMPARISON: No relevant prior studies available. FINDINGS: Limitations: Body habitus limit evaluation. Vertebrae: Unremarkable. No acute fracture. Normal alignment. Sacrum/coccyx: Unremarkable as visualized. No acute fracture. Disc spaces: No acute findings. No significant narrowing. Soft tissues: Calcification in the soft tissue likely represent injection granulomas. Gastrointestinal tract: Nonspecific bowel gas pattern with mild retained stool. IMPRESSION: No gross acute bony abnormality.
== END 2019-11-25 23:53 | disposition home or self-care (01) ==
LOC: EMR 22:32
DX: S39.012A Strain of muscle, fascia and tendon of lower back, initial encounter (principal); N30.00 Acute cystitis without hematuria; M25.552 Pain in left hip; W01.0XXA Fall on same level from slipping, tripping and stumbling without subsequent striking against object, initial encounter; Y92.9 Unspecified place or not applicable
CPT/HCPCS: 72020; 81025; 87086; 87181; Z7502; 99283

== ENCOUNTER → 2019-12-18 | Emergency (ER) | payer OTHER ==
[~2019-12-18] MED LIST changes: +IBUPROFEN600 M1 ORAL; +LEVAQUIN500 MG ORAL
--- NOTE | 2019-12-18 15:34 | NUR ---
ED Nurse Note: Patient left without being seen
--- NOTE | 2019-12-19 02:03 | Emergency Room Report ---
History of Present Illness General Chief Complaint: To Be Triaged Source: Medical Record Present Illness HPI Patient apparently presented with complaint of headache and nausea. Allergies: Coded Allergies: No Known Allergies (Unverified , 05/29/13) COVID-19 Screening Contact w/high risk pt: No Recent Travel to affected area: No Experienced COVID-19 symptoms?: No Patient History Past Medical History: see triage record Nursing Documentation-PMH Hx Asthma: No Hx Neurological Problems: No - PREMATURE MENOPAUSE Medical Decision Making Diagnostic Impression: Primary Impression: Patient left without being seen ER Course Patient left prior to triage. Disposition: LEFT W/OUT BEING SEEN Condition: Unknown Referrals: [facility],REFERRING (PCP) Jorge Cui MD Dec 19, 2019 02:03
== END | disposition left against medical advice (07) ==
LOC: EMR 15:40
DX: R51 Headache (principal); R11.0 Nausea; Z53.21 Procedure and treatment not carried out due to patient leaving prior to being seen by health care provider

== ENCOUNTER 2019-12-29 13:18 | Emergency (ER) | payer MEDICAID, OTHER ==
[2019-12-29] MEDS ORDERED: traMADol 50mg tab ORAL ONE (14:45)
[2019-12-29] MEDS ORDERED: Bactrim-DS 1 tab ORAL ONE (14:45)
[2019-12-29] MEDS ORDERED: Phenazopyridine 200mg tab ORAL ONE (14:45)
[2019-12-29] MEDS ORDERED: BACTRIM DS TAB1 EAC1 ORAL (14:47)
[2019-12-29] MEDS ORDERED: PHENAZOPYRIDIN200 MG ORAL (14:47)
== END 2019-12-29 15:10 | disposition home or self-care (01) ==
DX: N30.01 Acute cystitis with hematuria (principal)
CPT/HCPCS: 81003; 81025; 87086; 87181; Z7502

== ENCOUNTER → 2020-03-22 | Emergency (ER) | payer MEDICAID ==
[~2020-03-22] VITALS: Ht 154.9 cm; Wt 71.7 kg
[~2020-03-22] MED LIST changes: +BACTRIM DS TAB1 EAC1 ORAL; +CEPHALEXIN500 M1 ORAL; +cefTRIAXone 1 GM in NS 55 ML IVPB ONE
--- NOTE | 2020-03-22 12:22 | NUR ---
ED Nurse Note: Pt ambulated to ED c/o pain while urinating, urinary frequency. Per pt, sh was at her [employer] this wednesday and was prescribed with clindamycin 300mg. Pt stated she was exposed with people with covid. Pt is AOx4, calm and cooperative to care, VSS, satting at 96% on RA, afebrile on triage.
[2020-03-22 12:45] VITALS: BP 106/70
[2020-03-22 13:13] LABS: APPEARANCE,URINE SLIGHTLY CLOUDY; BASOPHILS % (AUTO) 2.6 % (0.0-2.0); BILIRUBIN, URINE NEGATIVE (NEGATIVE); COLOR,URINE PALE YELLOW; EOSINOPHILS % (AUTO) 1.6 % (0.0-3.0); GLUCOSE, URINE (UA) NEGATIVE (NEGATIVE); HEMATOCRIT 42.7 % (37.0-47.0); KETONES,URINE NEGATIVE (NEGATIVE); LEUKOCYTE ESTERASE ,URINE 3+ (NEGATIVE); LYMPHOCYTES % (AUTO) 25.8 % (20.0-45.0); MEAN CORPUSCULAR VOLUME 85 FL (80-99); NITRITE,URINE NEGATIVE (NEGATIVE); PH,URINE 6 (4.5-8.0); PLATELET COUNT 284 K/UL (150-450); PROTEIN,URINE 1+ (NEGATIVE); RED BLOOD COUNT 5.04 M/UL (4.20-5.40); RED CELL DISTRIBUTION WIDTH 10.7 % (11.6-14.8); UROBILINOGEN,URINE NORMAL MG/DL (0.0-1.0); WHITE BLOOD COUNT 6.1 K/UL (4.8-10.8)
[2020-03-22 13:17] LABS: ANION GAP 9 mmol/L (5-15); BLOOD UREA NITROGEN 15 mg/dL (7-18); CARBON DIOXIDE 23 MMOL/L (21-32); CHLORIDE 102 MMOL/L (98-107); CREATININE 0.9 MG/DL (0.55-1.30); POTASSIUM 4.3 MMOL/L (3.5-5.1); SODIUM 134 MMOL/L (136-145)
[2020-03-22 13:26] LABS: ALANINE AMINOTRANSFERASE 19 U/L (12-78); ALBUMIN 3.7 G/DL (3.4-5.0); ALBUMIN/GLOBULIN RATIO 1.1 (1.0-2.7); ALKALINE PHOSPHATASE 93 U/L (46-116); ASPARTATE AMINO TRANSFERASE 31 U/L (15-37); BILIRUBIN,TOTAL 0.4 MG/DL (0.2-1.0)
--- NOTE | 2020-03-22 13:43 | Emergency Room Report ---
History of Present Illness General Chief Complaint: Female Urogenital Problems Source: Patient Present Illness HPI 44-year-old female presents with right flank pain dysuria x3 days no aggravating relieving factors severity is moderate, constant she endorses subjective fever/chills x1 day, no nausea no vomiting, she endorses some suprapubic pain and burning with urination patient presents for evaluation and treatment Allergies: Coded Allergies: No Known Allergies (Unverified , 05/29/13) COVID-19 Screening Contact w/high risk pt: No Recent Travel to affected area: No Experienced COVID-19 symptoms?: Yes COVID-19 Testing performed OFFSET PLATE MAKER: No Patient History Past Medical History: see triage record Now: No Reviewed Nursing Documentation: PMH: Agreed; PSxH: Agreed Nursing Documentation-PMH Hx Asthma: No Hx Neurological Problems: No - PREMATURE MENOPAUSE Review of Systems All Other Systems: negative except mentioned in HPI Physical Exam Vital Signs Date Time Temp Pulse Resp B/P (MAP) Pulse Ox O2 Delivery O2 Flow Rate FiO2 03/22/20 12:18 98.2 84 19 106/70 (82) 99 Room Air General Appearance: well appearing, no apparent distress Head: normocephalic, atraumatic ENT: hearing grossly normal, normal voice Neck: full range of motion, supple Respiratory: no respiratory distress, speaking full sentences Gastrointestinal: soft, tenderness - Suprapubically Genitourinary: CVA tenderness (R) Neurologic: alert, normal gait Psychiatric: mood/affect normal Skin: no rash Medical Decision Making Diagnostic Impression: Primary Impression: UTI (urinary tract infection) Qualified Codes: N30.00 - Acute cystitis without hematuria Additional Impression: Pyelonephritis ER Course 44-year-old female presents with dysuria, right flank pain subjective fever and chills, vital signs in the ED differential includes UTI pyelonephritis We will provide patient with Keflex and, patient given 1 g of ceftriaxone in the ED Patient nontoxic-appearing Disposition home with return precautions Keflex and for 14 days Laboratory Tests Test 03/22/20 12:45 White Blood Count 6.1 K/UL (4.8-10.8) Red Blood Count 5.04 M/UL (4.20-5.40) Hemoglobin 15.0 G/DL (12.0-16.0) Hematocrit 42.7 % (37.0-47.0) Mean Corpuscular Volume 85 FL (80-99) Mean Corpuscular Hemoglobin 29.9 PG (27.0-31.0) Mean Corpuscular Hemoglobin Concent 35.3 G/DL (32.0-36.0) Red Cell Distribution Width 10.7 % (11.6-14.8) L Platelet Count 284 K/UL (150-450) Mean Platelet Volume 7.3 FL (6.5-10.1) Neutrophils (%) (Auto) 62.0 % (45.0-75.0) Lymphocytes (%) (Auto) 25.8 % (20.0-45.0) Monocytes (%) (Auto) 8.0 % (1.0-10.0) Eosinophils (%) (Auto) 1.6 % (0.0-3.0) Basophils (%) (Auto) 2.6 % (0.0-2.0) H Urine Color Pale yellow Urine Appearance Slightly cloudy Urine pH 6 (4.5-8.0) Urine Specific [place] 1.010 (1.005-1.035) Urine Protein 1+ (NEGATIVE) H Urine Glucose (UA) Negative (NEGATIVE) Urine Ketones Negative (NEGATIVE) Urine Blood 2+ (NEGATIVE) H Urine Nitrite Negative (NEGATIVE) Urine Bilirubin Negative (NEGATIVE) Urine Urobilinogen Normal MG/DL (0.0-1.0) Urine Leukocyte Esterase 3+ (NEGATIVE) H Urine RBC 0-2 /HPF (0 - 2) Urine WBC Tntc /HPF (0 - 2) H Urine Squamous Epithelial Cells Few /LPF (NONE/OCC) Urine Bacteria Moderate /HPF (NONE) H Urine HCG, Qualitative Negative (NEGATIVE) Sodium Level 134 MMOL/L (136-145) L Potassium Level 4.3 MMOL/L (3.5-5.1) Chloride Level 102 MMOL/L (98-107) Carbon Dioxide Level 23 MMOL/L (21-32) Anion Gap 9 mmol/L (5-15) Blood Urea Nitrogen 15 mg/dL (7-18) Creatinine 0.9 MG/DL (0.55-1.30) Estimated Glomerular Filtration Rate > 60 mL/min (>60) Glucose Level 101 MG/DL (74-106) Lactic Acid Level Pending Calcium Level 9.0 MG/DL (8.5-10.1) Total Bilirubin 0.4 MG/DL (0.2-1.0) Aspartate Amino Transferase (AST) 31 U/L (15-37) Alanine Aminotransferase (ALT) 19 U/L (12-78) Alkaline Phosphatase 93 U/L (46-116) Total Protein 7.2 G/DL (6.4-8.2) Albumin 3.7 G/DL (3.4-5.0) Globulin 3.5 g/dL Albumin/Globulin Ratio 1.1 (1.0-2.7) Lipase 121 U/L (73-393) Human Chorionic Gonadotropin, Quant 5 mIU/mL (1-6) Last Vital Signs Date Time Temp Pulse Resp B/P (MAP) Pulse Ox O2 Delivery O2 Flow Rate FiO2 03/22/20 12:45 98.2 19 106/70 99 Room Air 03/22/20 12:18 84 Disposition: HOME, SELF-CARE Condition: Stable Scripts Cephalexin* (KEFLEX*) 500 Mg Tablet 500 MG ORAL EVERY 6 HOURS, #40 CAP Prov: Earl Purcell MD 03/22/20 Referrals: [facility],REFERRING (PCP) [facility] Patient Instructions: Pyelonephritis, Adult, [id number] Additional Instructions: The patient was provided with discharge instructions, notified to follow-up with a primary care doctor and or specialist in the next 24-48 hours, and to return to the ED if they have worsening of their symptoms. Please note that this report is being documented using [employer] technology. This can lead to erroneous entry secondary to incorrect interpretation by the dictating instrument. Earl Purcell MD Mar 22, 2020 13:43
[2020-03-22 13:53] VITALS: BP 132/71
--- NOTE | 2020-03-22 13:53 | NUR ---
ED Nurse Note: Pt cleared by ERMD for discharge. DC instructions/prescription was given and explained to pt and verbalized understanding of teachings. All medical deviecs such as ID band and IV line removed. Pt is AAO x4, ambulatory and left with all personal belongings.
== END | disposition home or self-care (01) ==
LOC: EMR 12:29
DX: N30.00 Acute cystitis without hematuria (principal); N12 Tubulo-interstitial nephritis, not specified as acute or chronic
CPT/HCPCS: 36415; 80053; 81003; 81025; 83605; 83690; 84702; 85025; 87086; 87181; 96365; J0696; Z7502; 99284

== ENCOUNTER 2020-04-15 15:08 | Emergency (ER) | payer MEDICAID ==
[~2020-04-15] VITALS: Ht 157.5 cm; Wt 69.9 kg
[~2020-04-15 15:08] MED LIST changes: -cefTRIAXone 1 GM in NS 55 ML IVPB ONE
--- NOTE | 2020-04-15 15:23 | Emergency Room Report ---
History of Present Illness General Chief Complaint: Female Urogenital Problems Source: Patient Present Illness HPI 44 YO female presents to the ED c/o 6/10 dysuria and thin watery yellow vaginal d/c with fish like odor x 2 days. Pt. reports feeling feverish the last two days but has not measured her temperature. Pt. reports aches in the low back. She denies hematuria. She reports urgency. Pt. reports some mild itchiness. She denies notable vaginal rashes. She denies suspicion of STI. She denies abdominal pain or tenderness. She denies nausea or vomiting. She denies chills. She reports hx of frequent UTI's this year and has an appointment in 2 weeks with a urologist for having chronic microscopic hematuria. She denies suspicion for STi or . She denies recent unprotected intercourse. Allergies: Coded Allergies: No Known Allergies (Unverified , 05/29/13) COVID-19 Screening Contact w/high risk pt: No Recent Travel to affected area: No Experienced COVID-19 symptoms?: No COVID-19 Testing performed TRIAL MANAGEMENT ASSOCIATE: No Patient History Past Medical History: see triage record Past Surgical History: none Pertinent Family History: none Last Menstrual Period: 10years ago Reviewed Nursing Documentation: PMH: Agreed; PSxH: Agreed Nursing Documentation-PMH Past Medical History: No Stated History Hx Asthma: No Hx Neurological Problems: No - PREMATURE MENOPAUSE Review of Systems All Other Systems: negative except mentioned in HPI Physical Exam Vital Signs Date Time Temp Pulse Resp B/P (MAP) Pulse Ox O2 Delivery O2 Flow Rate FiO2 04/15/20 15:10 97.0 84 16 113/72 (86) 100 Room Air Sp02 EP Interpretation: reviewed, normal General Appearance: no apparent distress, alert, GCS 15, non-toxic Head: normocephalic, atraumatic Eyes: bilateral eye normal inspection, bilateral eye PERRL ENT: hearing grossly normal, normal voice Neck: full range of motion Respiratory: chest non-tender, lungs clear, normal breath sounds, speaking full sentences Cardiovascular #1: regular rate, rhythm, no edema Gastrointestinal: normal bowel sounds, non tender, soft Rectal: deferred Genitourinary: normal inspection, no CVA tenderness, adnexa normal, deferred Musculoskeletal: normal range of motion, gait/station normal, non-tender Neurologic: alert, motor strength/tone normal, oriented x3, sensory intact, responsive, speech normal Psychiatric: judgement/insight normal Skin: no rash, normal color Lymphatic: no adenopathy Medical Decision Making PA Attestation is my supervising physician who pt. management has been discussed with. Diagnostic Impression: Primary Impression: UTI (urinary tract infection) Qualified Codes: N30.01 - Acute cystitis with hematuria Additional Impression: ACUTE VAGINITIS ER Course 44 YO female presents to the ED c/o 6/10 dysuria and thin watery yellow vaginal d/c with fish like odor x 2 days. Pt. reports feeling feverish the last two days but has not measured her temperature. Pt. reports aches in the low back. She denies hematuria. She reports urgency. Pt. reports some mild itchiness. She denies notable vaginal rashes. She denies suspicion of STI. She denies abdominal pain or tenderness. She denies nausea or vomiting. She denies chills. She reports hx of frequent UTI's this year and has an appointment in 2 weeks with a urologist for having chronic microscopic hematuria. She denies suspicion for STi or . She denies recent unprotected intercourse. Ddx considered but are not limited to UTi , Pyelo, STI, Stone, Cystitis, vaginal laceration, vaginitis. Vital signs: are WNL, pt. is afebrile H& PE are most consistent with: Vaginitis and uncomplicated UTI. Patient does not have physical exam findings suggestive of pyelonephritis. Or renal calculi. Patient is nontoxic in appearance and in no acute distress. Will treat clinically for BV. ORDERS: - UA labs are attached Positive for UTI - HCG: negative ED INTERVENTIONS: -Bactrim PO -I do not identify an emergent condition at this time. With current presentation, pt. is stable for close outpatient follow up and conservative treatment. D/w pt. to return promptly to ED with worsening or new symptoms.- Pt. verbalizes' understanding and agreement with proposed treatment plan. Pt. also requested rx of zofran for nausea as abx make her feel nauseous. DISCHARGE: At this time pt. is stable for d/c to home. Will provide printed patient care instructions, and any necessary prescriptions. Care plan and follow up instructions have been discussed with the patient prior to discharge. discussed with the patient prior to discharge. Labs Test 04/15/20 15:30 Urine Color Pale yellow Urine Appearance Cloudy Urine pH 5 (4.5-8.0) Urine Specific [place] 1.010 (1.005-1.035) Urine Protein Negative (NEGATIVE) Urine Glucose (UA) Negative (NEGATIVE) Urine Ketones Negative (NEGATIVE) Urine Blood 2+ (NEGATIVE) Urine Nitrite Negative (NEGATIVE) Urine Bilirubin Negative (NEGATIVE) Urine Urobilinogen Normal MG/DL (0.0-1.0) Urine Leukocyte Esterase 3+ (NEGATIVE) Urine RBC 10-15 /HPF (0 - 2) Urine WBC 60-80 /HPF (0 - 2) Urine Squamous Epithelial Cells Moderate /LPF (NONE/OCC) Urine Bacteria Many /HPF (NONE) Urine HCG, Qualitative Negative (NEGATIVE) Last Vital Signs Date Time Temp Pulse Resp B/P (MAP) Pulse Ox O2 Delivery O2 Flow Rate FiO2 04/15/20 15:10 97.0 84 16 113/72 (86) 100 Room Air Status: improved Disposition: HOME, SELF-CARE Condition: Stable Scripts Ondansetron Odt* (ZOFRAN ODT*) 4 Mg Tab.rapdis 4 MG BC EVERY 6 HOURS PRN for Nausea & Vomiting, #10 TAB 0 Refills Prov: Juany Faria 04/15/20 Metronidazole* (METROGEL-VAGINAL*) 70 Gm Gel.w.appl 1 APPL VAGIN BEDTIME for 5 Days, #70 GM Prov: Juany Faria 04/15/20 Trimethoprim/Sulfamethoxazole 160/800* (BACTRIM DS TABLET*) 1 Each Tablet 1 TAB ORAL TWICE A DAY for 7 Days, #14 TAB Prov: Juany Faria 04/15/20 Patient Instructions: Urinary Tract Infection Additional Instructions: Take medications as directed. Follow up with a Primary Care Provider in 3-5 days, even if your symptoms have resolved. Return sooner to ED if new symptoms occur, or current symptoms become worse. - Please note that this Emergency Department Report was dictated using [employer] executive technology software, occasionally this can lead to erroneous entry secondary to interpretation by the dictation equipment. Juany Faria Apr 15, 2020 15:23
[2020-04-15] MEDS ORDERED: Phenazopyridine 200mg tab ORAL ONE (15:30)
[2020-04-15 16:03] VITALS: BP 113/72
[2020-04-15 16:11] LABS: BILIRUBIN, URINE NEGATIVE (NEGATIVE); COLOR,URINE PALE YELLOW; GLUCOSE, URINE (UA) NEGATIVE (NEGATIVE); KETONES,URINE NEGATIVE (NEGATIVE); LEUKOCYTE ESTERASE ,URINE 3+ (NEGATIVE); NITRITE,URINE NEGATIVE (NEGATIVE); PH,URINE 5 (4.5-8.0); PROTEIN,URINE NEGATIVE (NEGATIVE); UROBILINOGEN,URINE NORMAL MG/DL (0.0-1.0)
[2020-04-15 16:38] LABS: APPEARANCE,URINE CLOUDY
[2020-04-15] MEDS ORDERED: METROGEL-VAGINA70 G1 VAGIN (16:59)
[2020-04-15] MEDS ORDERED: BACTRIM DS TAB1 EAC1 ORAL (16:59)
[2020-04-15] MEDS ORDERED: Bactrim-DS 1 tab ORAL ONE (17:00)
[2020-04-15] MEDS ORDERED: ONDANSETRON ODT4 MG BC (17:10)
[2020-04-15 17:20] VITALS: BP 113/72
--- NOTE | 2020-04-15 17:20 | NUR ---
ED Nurse Note: Pt cleared by health care Provider for discharge. DC instructions/prescription was given and explained to pt and verbalized understanding of teachings. All medical deviecs such as ID band removed. Pt is AAO x4, ambulatory and left with all personal belongings.
== END 2020-04-15 18:45 | disposition home or self-care (01) ==
LOC: EMR 15:15
DX: N30.01 Acute cystitis with hematuria (principal); N76.0 Acute vaginitis; Z87.440 Personal history of urinary (tract) infections
CPT/HCPCS: 81003; 81025; 87086; Z7502; 99283

== ENCOUNTER 2020-05-11 17:35 | Emergency (ER) | payer MEDICAID ==
[~2020-05-11] VITALS: Ht 162.6 cm; Wt 72.6 kg
[~2020-05-11 17:35] MED LIST changes: +METROGEL-VAGINA70 G1 VAGIN; +ONDANSETRON ODT4 MG BC
[2020-05-11 18:00] VITALS: BP 117/68
[2020-05-11] MEDS ORDERED: Ketorolac 30mg Inj IM ONE (18:45)
[2020-05-11] MEDS ORDERED: Metoclopramide 10mg/2ml Inj IM ONE (18:45)
[2020-05-11 18:48] LABS: APPEARANCE,URINE SLIGHTLY CLOUDY; BILIRUBIN, URINE NEGATIVE (NEGATIVE); COLOR,URINE PALE YELLOW; GLUCOSE, URINE (UA) NEGATIVE (NEGATIVE); KETONES,URINE NEGATIVE (NEGATIVE); LEUKOCYTE ESTERASE ,URINE 2+ (NEGATIVE); NITRITE,URINE POSITIVE (NEGATIVE); PH,URINE 7 (4.5-8.0); PROTEIN,URINE NEGATIVE (NEGATIVE); UROBILINOGEN,URINE NORMAL MG/DL (0.0-1.0)
--- NOTE | 2020-05-11 19:09 | Emergency Room Report ---
History of Present Illness General Chief Complaint: Flu Like Symptoms Source: Patient Present Illness HPI 44-year-old female presents to the emergency department complaining of persistent headache x3 days. Patient reports associated nausea and some vomiting. She reports she has a history of migraines and endorses that these are her normal symptoms that she experiences when she has migraines like she has had in the past. She also reports that she felt really hot she denies actually measuring a temperature. She denies blood in the vomit or having black stools. Patient states she took Tylenol with little to no relief. Patient denies photophobia or neck stiffness. She describes a progressive onset at work. Pt. reports in the past she has had headaches last up to 7 days. She denies seeing a neurologist or being rx'd any specific migraine medications. Pt. denies recent head injury. She denies abdominal pain or tenderness. She denies paresthesias, muscle weakness or loss of gross motor movements of the extremities. Patient denies any facial droop or changes in her vision. No other aggravating or relieving factors at this time. Patient states that she was recently treated for UTI at the beginning of this month. She denies and reports having early menopause. 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 Review of Systems All Other Systems: negative except mentioned in HPI Physical Exam Vital Signs Date Time Temp Pulse Resp B/P (MAP) Pulse Ox O2 Delivery O2 Flow Rate FiO2 05/11/20 17:47 98.4 84 16 103/65 (78) 98 Room Air 05/11/20 18:00 99 Sp02 EP Interpretation: reviewed, normal General Appearance: no apparent distress, alert, GCS 15, non-toxic Head: normocephalic, atraumatic Eyes: bilateral eye normal inspection, bilateral eye PERRL, bilateral eye EOMI, bilateral eye other - no photophobia, no nystagmus ENT: hearing grossly normal, normal voice Neck: full range of motion, no meningismus, no bony tend Respiratory: lungs clear, normal breath sounds, speaking full sentences Cardiovascular #1: regular rate, rhythm Gastrointestinal: normal bowel sounds, non tender, soft, non-distended, no guarding Genitourinary: normal inspection, no CVA tenderness Musculoskeletal: back normal, normal range of motion, gait/station normal, non- tender Neurologic: alert, motor strength/tone normal, oriented x3, sensory intact, responsive, speech normal Psychiatric: judgement/insight normal Skin: normal color Medical Decision Making PA Attestation Dr. Shukla Is my supervising Physician whom patient management has been discussed with. Diagnostic Impression: Primary Impression: Headache Qualified Codes: R51.9 - Headache, unspecified Additional Impression: UTI (urinary tract infection) Qualified Codes: N30.01 - Acute cystitis with hematuria ER Course 44-year-old female presents to the emergency department complaining of persistent headache x3 days. Patient reports associated nausea and some vomiting. She reports she has a history of migraines and endorses that these are her normal symptoms that she experiences when she has migraines like she has had in the past. She also reports that she felt really hot she denies actually measuring a temperature. She denies blood in the vomit or having black stools. Patient states she took Tylenol with little to no relief. Patient denies photophobia or neck stiffness. She describes a progressive onset at work. Pt. reports in the past she has had headaches last up to 7 days. She denies seeing a neurologist or being rx'd any specific migraine medications. Pt. denies recent head injury. She denies abdominal pain or tenderness. She denies paresthesias, muscle weakness or loss of gross motor movements of the extremities. Patient denies any facial droop or changes in her vision. No other aggravating or relieving factors at this time. Patient states that she was recently treated for UTI at the beginning of this month. She denies and reports having early menopause. Ddx considered but are not limited to migraine, SAH, Pseudomotor Cerebri, Mass lesion, Cluster PALACIOS, Tension PALACIOS, Post lumbar puncture PALACIOS. Vital signs: are WNL, pt. is afebrile H&PE are most consistent with migraine headache. Pt. is NAD, non-toxic in appea esperanza, not actively vomiting in the ED. No focal neurological deficits. No meningismus. ORDERS: - UA: nitrite positive -Urine Hcg: negative ED INTERVENTIONS: - 30mg IM Toradol - 10mg Reglan IM - Benadryl 50mg PO Patient reports that her headache has subsided upon reevaluation. Pt. has been tolerating oral intake here in the ED without incidence. DISCHARGE: At this time pt. is stable for d/c to home. Will provide printed patient care instructions, and any necessary prescriptions. Care plan and follow up instructions have been discussed with the patient prior to discharge. Labs Test 05/11/20 18:37 Urine Color Pale yellow Urine Appearance Slightly cloudy Urine pH 7 (4.5-8.0) Urine Specific Geraldine 1.010 (1.005-1.035) Urine Protein Negative (NEGATIVE) Urine Glucose (UA) Negative (NEGATIVE) Urine Ketones Negative (NEGATIVE) Urine Blood 1+ (NEGATIVE) Urine Nitrite Positive (NEGATIVE) Urine Bilirubin Negative (NEGATIVE) Urine Urobilinogen Normal MG/DL (0.0-1.0) Urine Leukocyte Esterase 2+ (NEGATIVE) Urine RBC 5-10 /HPF (0 - 2) Urine WBC 20-30 /HPF (0 - 2) Urine Squamous Epithelial Cells Many /LPF (NONE/OCC) Urine Bacteria Many /HPF (NONE) Urine HCG, Qualitative Negative (NEGATIVE) Last Vital Signs Date Time Temp Pulse Resp B/P (MAP) Pulse Ox O2 Delivery O2 Flow Rate FiO2 05/11/20 18:00 98.4 87 18 117/68 99 Room Air 05/11/20 18:00 99 Status: improved Disposition: HOME, SELF-CARE Condition: Stable Scripts Cephalexin* (KEFLEX*) 500 Mg Capsule 500 MG ORAL EVERY 12 HOURS for 7 Days, #14 CAP 0 Refills Prov: Juany Faria 05/11/20 Referrals: NON PHYSICIAN (PCP) Patient Instructions: Migraine Headache, [id number], Urinary Tract Infection, [id number] Additional Instructions: Take medications as directed. Follow up with a Primary Care Provider in 3-5 days For a referral to have NEUROLOGIST Evaluation, even if your symptoms have resolved. --Please review list of primary care clinics, if you do not already have a primary care provider Return sooner to ED if new symptoms occur, or current symptoms become worse. - Please note that this Emergency Department Report was dictated using [employer] manager technology software, occasionally this can lead to erroneous entry secondary to interpretation by the dictation equipment. Juany Faria May 11, 2020 19:08
[2020-05-11] MEDS ORDERED: CEPHALEXIN500 MG ORAL (19:32)
[2020-05-11 19:45] VITALS: BP 124/76
== END 2020-05-11 19:45 | disposition home or self-care (01) ==
LOC: EMR 18:05
DX: R51.9 Headache, unspecified (principal); N30.01 Acute cystitis with hematuria
CPT/HCPCS: 81003; 81025; 87086; 87181; 96372; J1885; J2765; Z7502; 99283